=== PATIENT | male | born 1950 | race Caucasian/White ===

== ENCOUNTER 2016-11-19 21:39 | Emergency (ER) | payer BC, MEDICARE ==
[~2016-11-19] VITALS: Ht 167.6 cm; Wt 86.2 kg
[~2016-11-19 21:39] MED LIST: EZET1TAB6 PO; LANS30CA56 PO; METO50TA3 PO; PRAV40TA3 PO; VALS80TA2 PO
[2016-11-19 22:57] VITALS: BP 116/74
== END 2016-11-19 22:10 | disposition home or self-care (01) ==
LOC: ER 21:43
DX: S82.831A Other fracture of upper and lower end of right fibula, initial encounter for closed fracture (principal); I25.2 Old myocardial infarction; E11.9 Type 2 diabetes mellitus without complications; Z90.89 Acquired absence of other organs; Z95.2 Presence of prosthetic heart valve; X37.1XXA Tornado, initial encounter; Y93.01 Activity, walking, marching and hiking; Y92.89 Other specified places as the place of occurrence of the external cause; Y99.8 Other external cause status
CPT/HCPCS: 29515; 73610; 99284; A4606; Z7610